=== PATIENT | male | born 1985 | race Caucasian/White ===

== ENCOUNTER 2024-01-07 15:21 | Outpatient (CLI) | payer SELFPAY ==
--- NOTE | ~2024-01-07 | XR_ITS ---
EXAMINATION: XR finger 4th LT min 2V INDICATION: Left fourth finger pain, recent dislocation TECHNIQUE: Four views of the left fourth finger are obtained. COMPARISON: None available FINDINGS: There is flexion at the proximal interphalangeal joint and extension at the distal interpha langeal joint. There is calcified callus formation at the dorsal base of the fourth middle phalanx. T he joint spaces are maintained. There is soft tissue swelling of the fourth finger. IMPRESSION: 1. Findings suggestive of tendinous injury and healing fracture of the fourth finger. Reviewed, dictated and finalized at location F. IMPRESSION: 1. Findings suggestive of tendinous injury and healing fracture of the fourth f rufino.
== END 2024-01-07 15:22 | disposition home or self-care (01) ==
LOC: ANHIMG 15:35
PROVIDERS: PCP Plastic Surgery; Visit Provider Plastic Surgery
DX: S63.289A Dislocation of proximal interphalangeal joint of unspecified finger, initial encounter (principal); X58.XXXA Exposure to other specified factors, initial encounter
CPT/HCPCS: 73140

== ENCOUNTER 2024-12-18 11:49 | Outpatient (CLI) | payer SELFPAY ==
--- NOTE | ~2024-12-18 | XR_ITS ---
EXAMINATION: XR fl inj shoulder LT - MR/CT DATE: 12/18/2024 12:48 INDICATION: Left shoulder dislocation TECHNIQUE: A time-out was performed to verify the patient's name, date of , and procedure to b e performed. The procedure including the risks, benefits, and alternatives was discussed with the pat ient. Risks discussed included bleeding and infection. The patient understood the risks and agreed to proceed. The skin overlying the rotator cuff interval the left glenohumeral joint was prepped and d raped in usual sterile fashion. Anesthetic was administered with 1% lidocaine subcutaneously. A 22 G needle was advanced under fluoroscopic guidance into the joint. Injection of 1 mL of Omnipaque 240 confirmed intra-articular position of the needle. Subsequently, injectate consisting of 12 mL of 2: 1:1 mixture of sterile saline:Omnipaque 240:1% lidocaine mixed 200:1 with 529 mg/mL Multihance gadoli nium contrast was instilled with intra-articular administration confirmed with intermittent fluorosc opy . The needle was removed and the entry site was cleaned and dressed. There were no immediate com plications. Fluoroscopy exposure time was 0.4 minutes. The total number of images was 142. Total DAP was 0.514 mGycm^2 FINDINGS: Real-time fluoroscopy demonstrates the needle and contrast in the left glenohumeral joint. The axillary recess appears patulous with irregular margins suggesting tear of the glenohumeral capsu le. IMPRESSION: 1. Successful left glenohumeral joint injection of dilute gadolinium contrast mixture for subsequent MRI arthrogram which will be dictated separately. Reviewed, dictated and finalized at location B. OPERATOR IMPRESSION: 1. Successful left glenohumeral joint injection of dilute gadolinium contrast m ixture for subsequent MRI arthrogram which will be dictated separately.
--- NOTE | ~2024-12-18 | MR_ITS ---
EXAMINATION: MR shoulder LT w con DATE: 12/18/2024 13:18 INDICATION: Left shoulder dislocation TECHNIQUE: Magnetic resonance imaging (MRI) of the left shoulder was performed following intra-artic ular gadolinium contrast injection and without intravenous contrast. Details of the glenohumeral join t injection have been dictated separately. Sequences included axial T2-weighted FS FSE, axial T1-eliezer ghted FS FSE, coronal oblique T1-weighted FS FSE, coronal oblique T2-weighted FSE, sagittal T2-weight ed FS FSE, sagittal T1-weighted FSE, and ABER (abduction external rotation) T1-weighted FS FSE. COMPARISON: None. FINDINGS: Coracoacromial arch: The acromion undersurface is curved in morphology (type II). The coracoacromial ligament is normal. Mild acromioclavicular osteoarthritis. Rotator cuff: Complete full-thickness tear of the supraspinatus and infraspinatus tendons with the complete detachm ent from the greater tuberosity footplate best appreciated on the ABER images. The tendons appear att enuated distally and tethered/scarred to soft tissue which extends distally along the metaphyseal reg ion of the proximal humerus with no clearly defined retracted tear margin. The tear extends across th e rotator cuff interval to involve the majority the lesser tuberosity footplate of the subscapularis tendon. A minimal amount the tendon remains attached to the caudal-most aspect of the lesser tuberosi ty footplate. Portion of the bursal side of the subscapular tendon also remains intact and contiguous with the intact transverse humeral ligament. No evident fatty atrophy of the loss of the rotator cuf f or remaining shoulder girdle. Biceps tendon, glenoid labrum and glenohumeral cartilage: The long head of the biceps tendon is also noted glenoid anchor with the distally retracted and atten uated tear margin position of the caudal aspect of the intertubercular groove. The anteroinferior gle noid labrum appears thickened and globular with partial-thickness tear at the chondral labral junctio n. There is additional fraying along the free edge of the posterior glenoid labrum. There is mild par tial-thickness cartilage loss with smooth chondral surface along the inferomedial aspect of the humer al head with there are also small marginal osteophytes. Remainder of the glenoid and humeral cartilag e appears relatively preserved. Bones and other: Normal marrow signal with no edema, fracture or abnormal marrow replacing process. Mild cystic change at the greater tuberosity. The axillary recess appears patulous with tear of the anteroinferior labr um. There is synovitis throughout the recess of the glenohumeral joint space. Contrast also seen exte nding into the subacromial/subdeltoid bursa through the full-thickness rotator cuff tear. IMPRESSION: 1. Very large full-thickness rotator cuff tear involving the entire supraspinatus and infraspinatus t endons and all but the caudal-most subscapularis tendon. 2. Tear at the anteroinferior glenoid labrum with some fraying along the free edge of the posterior l abrum. The anteroinferior labral tear along with tearing of the anterior inferior glenohumeral ligame nt likely represents sequela of prior intraventricular glenohumeral dislocation. 3. Mild glenohumeral and acromioclavicular osteoarthritis. Line 4. Avulsion and distal retraction of the long head biceps tendon. Reviewed, dictated and finalized at location B. UNICATIONS SYSTEMS ENGINEER IMPRESSION: 1. Very large full-thickness rotator cuff tear involving the entire supraspinat us and infraspinatus tendons and all but the caudal-most subscapularis tendon. 2. Tear at the anteroinferior glenoid labrum with some fraying along the free e dge of the posterior labrum. The anteroinferior labral tear along with tearing of the anterior inferior glenohumeral ligament likely represents sequela of flores or intraventricular glenohumeral dislocation. 3. Mild glenohumeral and acromioclavicular osteoarthritis. Line 4. Avulsion and distal retraction of the long head biceps tendon.
== END 2024-12-18 11:50 | disposition home or self-care (01) ==
PROVIDERS: PCP Internal Medicine; Visit Provider Internal Medicine
DX: S43.005D Unspecified dislocation of left shoulder joint, subsequent encounter (principal); X58.XXXD Exposure to other specified factors, subsequent encounter; M19.012 Primary osteoarthritis, left shoulder; M75.102 Unspecified rotator cuff tear or rupture of left shoulder, not specified as traumatic
CPT/HCPCS: 23350; 73222; A9577